=== PATIENT | female | born 1985 | race Hispanic/Latino ===

== ENCOUNTER 2019-04-08 09:47 | Inpatient (IN) | payer MEDICAID ==
--- NOTE | 2019-04-05 14:08 | History and Physical Report ---
History of Present Illness Date of examination: 04/01/19 Date of admission: 04/08/2019 Chief complaint: c/s with BTL History of present illness: Pt here for repeat c/s with BTL. EDC Confirmation: 03/18/2019 Gestational Age: 17 6/7 weeks Past History : 3 Term Births: 2 Living Children: 2 Para: 2 Prev : 2 Aborta: 0 # 1 Delivery date: 09/2008 Weeks Gestation: 41 labor: no Delivery type: Anesthesia type: epidural Delivery location: [facility] Infant Sex: Female weight: 7-2 Comments: failed IOL for post-dates # 2 Delivery date: 11/21/2011 Weeks Gestation: 39 Delivery type: Anesthesia type: epidural Delivery location: [facility] Sex: female weight: 6.31 Name: Jason Comments: none Past Medical History: Reviewed history from 04/15/2011 and no changes required: Negative Past Medical History Past Surgical History: Reviewed history from 04/15/2011 and no changes required: Past Medical History Abnormal PAP: negative JOSEY Exposure: negative Infertility: negative Uterine Anomaly: negative Uterine Surgery (not C/S): negative Other Gynecologic Problems: negative Medical History Comments: negative Family Hx: father- heart dz cousing- of melanoma 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 of genital herpes: no Rash, Viral, or Febrile illness since last LMP? no Varicella/Chicken Pox Status: Previous Disease Genetic History Congenital Heart Defect: Mom: no Dad: no Louis Disease: Mom: no Dad: no Thalassemia Mom: no Dad: no Neural Tube Defect Mom: no Dad: no Down's Syndrome Mom: no Dad: no Lex-Sachs Mom: no Dad: no Sickle Cell Disease/Trait Mom: no Dad: no Hemophilia Mom: no Dad: no Muscular Dystrophy Mom: no Dad: no Cystic Fibrosis Mom: no Dad: no Rajinder Chorea Mom: no Dad: no Mental Retardation Mom: no Dad: no Fragile X Mom: no Dad: no Other Genetic/Chromosomal Disorder Mom: no Dad: no Child w/other defect Mom: no Dad: no Enviromental Exposures Xray Exposure: no Medication, drug, or alcohol use since LMP: no Chemical/Other Exposure: no Exposure to Cat Liter: no Hx of Parvovirus (Fifth Disease): no Occupational Exposure to Children: none Active Medications (reviewed today): PNV () Current Allergies (reviewed today): No known allergies Past History Past Medical History: no pertinent history, other (see hpi) 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 History: denies: abnormal PAP smear Social history: no significant social history, - Obstetrical History Expected Date of Delivery: 04/12/19 Actual Gestation: 39 Week(s) 3 Day(s) Medications and Allergies Allergies Allergy/AdvReac Type Severity Reaction Status Date / Time No Known Allergies Allergy Unverified 04/08/19 10:40 Home Medications Medication Instructions Recorded Confirmed Last Taken Type No Known Home Medications [No 04/08/19 04/08/19 Unknown History Reported Home Medications] Review of Systems All systems: negative - Physical Exam Cardiovascular: Normal S1, Normal S2 Lungs: Positive: Clear to auscultation, Normal air movement Abdomen: Positive: normal appearance, soft. Negative: distention, tenderness, guarding Genitourinary (Female): Positive: other (deferred) - Obstetrical FHR: auscultation normal Results Result Diagrams: 04/08/19 10:40 All other labs normal. Assessment and Plan - Patient Problems (1) 39 weeks gestation of Current Visit: Yes Status: Acute Plan to address problem: -admit and prepare for c/s with BTL -consents signed and placed on the chart. (2) Encounter for sterilization Current Visit: Yes Status: Acute Plan to address problem: -admit and prepare for c/s with BTL -consents signed and placed on the chart. (3) Previous delivery affecting Current Visit: Yes Status: Acute Plan to address problem: -admit and prepare for c/s with BTL -consents signed and placed on the chart.
[~2019-04-08 09:47] MED LIST: BICITRA PO NR; PEPCID IV NR; REGLAN IV NR
[2019-04-08] MEDS ORDERED: ANCEF/STERILE WATER 2 GM/20 ML 2 GM/20 ML SYRINGE IV NR (10:00)
[2019-04-08 10:56] LABS: Basophils % (Auto) 0.3 % (0.0-1.8); Eosinophils % (Auto) 0.5 % (0.0-4.3); Hematocrit 32.2 % (30.3-42.9); Lymphocytes # (Auto) 1.9 K/mm3 (1.2-5.4); Lymphocytes % (Auto) 18.4 % (13.4-35.0); Mean Corpuscular HGB Conc 34 % (30-34); Mean Corpuscular Volume 89 fl (79-97); Monocytes # (Auto) 0.6 K/mm3 (0.0-0.8); Monocytes % (Auto) 6.3 % (0.0-7.3); Platelet Count 195 K/mm3 (140-440); Red Blood Count 3.63 M/mm3 (3.65-5.03); Red Cell Distribution Width 13.4 % (13.2-15.2)
--- NOTE | 2019-04-08 10:57 | Anesthesia Consultation ---
Anesthesia Consult and Med Hx Date of service: 04/08/19 - Airway Anesthetic Teeth Evaluation: Good ROM Head & Neck: Adequate Mental/Hyoid Distance: Adequate Mallampati Class: Class II Intubation Access Assessment: Probably Good - Pulmonary Exam CTA: Yes - Cardiac Exam Cardiac Exam: RRR - Pre-Operative Health Status ASA Pre-Surgery Classification: ASA2 Proposed Anesthetic Plan: Epidural - Pulmonary Hx Smoking: No Hx Asthma: No Hx Respiratory Symptoms: No SOB: No COPD: No Home Oxygen Therapy: No Hx Pneumonia: No Hx Sleep Apnea: No (snores) - Cardiovascular System Hx Hypertension: No Hx Coronary Artery Disease: No Hx Heart Attack/AMI: No Hx Angina: No Hx Percutaneous Transluminal Coronary Angioplasty (PTCA): No Hx Cardia Arrhythmia: No Hx Pacemaker: No Hx Internal Defibrillator: No Hx Valvular Heart Disease: No Hx Heart Murmur: No - Central Nervous System Hx Neuromuscular Disorder: No Hx Seizures: No CVA: No Hx Back Pain: Yes Hx Psychiatric Problems: No - Gastrointestinal Hx Ulcer: No Hx Gastroesophageal Reflux Disease: Yes - Endocrine Hx Renal Disease: No Hx Cirrhosis: No Hx Liver Disease: No Hx Insulin Dependent Diabetes: No Hx Non-Insulin Dependent Diabetes: No Hx Thyroid Disease: No Hx Hypothyroidism: No Hx Hyperthyroidism: No - Hematic Hx Anemia: No Hx Sickle Cell Disease: No - Other Systems Hx Alcohol Use: No Hx Substance Use: No Hx Cancer: No Hx Obesity: No
[2019-04-08] MEDS ORDERED: ZOFRAN IV PRN (10:58)
[2019-04-08] MEDS ORDERED: NARCAN 0.4 MG/1 ML IV PRN ×2 (10:58→13:36)
[2019-04-08] MEDS ORDERED: DILAUDID IV PRN ×2 (10:58)
--- NOTE | 2019-04-08 10:58 | Anesthesia Day of Surgery ---
Anesthesia Day of Surgery - Day of Surgery Patient Examined: Yes Patient H&P Reviewed: Yes Patient is NPO: Yes Beta Blockers: No Cardiac Clearance: No Pulmonary Clearance: No Shon's Test: N/A
[2019-04-08] MEDS ORDERED: SODIUM CHLORIDE FLUSH SYRINGE 10 ML IV NR (11:00)
[2019-04-08] MEDS: LACTATED RINGERS 1,000 ML IV SCH ×2 (11:04→11:38)
[2019-04-08] MEDS ORDERED: SUBLIMAZE ONE (11:08)
[2019-04-08] MEDS ORDERED: WATER FOR IRRIG STERILE IR ONE (12:00)
[2019-04-08] MEDS ORDERED: NACL 0.9% IR ONE (12:00)
[2019-04-08] MEDS ORDERED: TORADOL ONE (12:27)
[2019-04-08] MEDS ORDERED: NEO SYNEPHRINE ONE (12:28)
[2019-04-08] MEDS: PITOCin/NS 20 UNIT/1000ML DRIP 20 UNITS/1,000 ML BAG IV SCH ×2 (12:47→13:48)
[2019-04-08] MEDS ORDERED: VERSED ONE (13:15)
[2019-04-08] MEDS ORDERED: TUCKS PAD TP PRN (13:36)
[2019-04-08] MEDS ORDERED: LANSINOH TP PRN (13:36)
--- NOTE | 2019-04-08 13:36 | Operative Report ---
Operative Report Operative Report: Date of procedure: 04/08/2019 Pre-operative diagnosis: 39 weeks Previous section 2 Desires permanent sterilization Post-operative diagnosis: Same Procedure name(s): Repeat low transverse section via Pfannenstiel skin incision Bilateral tubal ligation via modified [place] method Surgeon: Dr. 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 11 oz. Apgars of 8 and 9 at one and 5 minutes Well-developed very thin lower uterine segment Grossly normal fallopian tubes and ovaries bilaterally Minimal abdominal adhesions Indications: Patient presents for scheduled repeat section with bilateral tubal ligation. All risks benefits and alternatives were discussed with patient. Consent forms were signed and placed on the chart. Procedure: Patient was taking to the operating room. Patient was then prepped and draped in sterile fashion after anesthesia was found to be adequate. A low transverse skin incision was made with the scalpel through previous incisional scar and carried down to the underlying layer of fascia with the Bovie. The fascia was then incised in the midline and this incision was extended bilaterally with the Bovie. The superior aspect of the fascia was grasped with Mendoza clamps tented upward and dissected off of the anterior rectus muscles with the scalpel. In similar fashion the inferior aspect of the fascia was grasped with Mendoza clamps tented upward and dissected off of the anterior rectus muscles. The rectus muscles were then bluntly divided in the midline. The peritoneum was identified and entered into sharply. The Robe retractor was placed. The bladder blade was replaced. A lower transverse uterine incision was made with the scalpel and extended bilaterally with the bandage sc issors. Artificial rupture of membranes was performed yielding clear amniotic fluid. The infant's head was then delivered atraumatically. The anterior shoulder and rest of delivered without difficulty. The umbilical cord was clamped x2. The cord was cut. The was then placed in sterile bassinet. he placenta was manually extracted in its entirety. The uterus was exteriorized and cleared of all clots and debris. The uterine incision was closed using 0 Vicryl in a running locking fashion. A second imbricating layer of the same suture was then created. Attention was then turned to the fallopian tubes. A knuckle of the fallopian tube was suture ligated 2 and transected. Portion of tube was then handed off for pathology. This was done bilaterally The posterior cul-de-sac was copiously irrigated. The uterus was returned to the abdomen. The gutters were also irrigated. Tisseel was placed over the uterine incision. The Robe retractor was removed from the abdomen. The anterior rectus muscles were reapproximated using 3-0 Vicryl. The anterior rectus fascia was reapproximated using 0 Vicryl in a running fashion. The subcuticular fat was reapproximated using 2-0 Vicryl in a running fashion. The skin was reapproximated with 4-0 Monocryl in a subcuticular stitch. The patient tolerated the procedure well. Sponge lap and needle counts were all correct x3. Patient was taken to the recovery room awake and in stable condition.
--- NOTE | 2019-04-08 13:38 | Post Anesthesia Evaluation ---
- Post Anesthesia Evaluation Patient Participated: Yes Airway Patent: Yes Stable Respiratory Function: Yes Nausea/Vomiting: No Temp > 96.8F: Yes Pain Manageable: Yes Adequeate Hydration: Yes Anesthesia Complications: No Block Receding Appropriately: Yes Patient on Ventilator: No
[2019-04-08] MEDS ORDERED: PITOCin/NS 20 UNIT/1000ML DRIP 20 UNITS/1,000 ML BAG IV SCH (14:00)
[2019-04-08] MEDS: TORADOL IV PRN (16:38)
[2019-04-08] MEDS: ANCEF/NS 1 GM/50 ML 1 GM/50 ML BAG IV SCH (16:45)
[2019-04-08] MEDS: D5LR 1,000 ML IV SCH (16:47)
[2019-04-09] MEDS: TORADOL IV PRN ×2 (00:11→05:30)
[2019-04-09] MEDS: D5LR 1,000 ML IV SCH (00:13)
[2019-04-09] MEDS: ANCEF/NS 1 GM/50 ML 1 GM/50 ML BAG IV SCH (00:18)
[2019-04-09] MEDS ORDERED: NORCO 5/325 PO PRN (01:00)
[2019-04-09 02:12] LABS: Hematocrit 27.8 % (30.3-42.9); Hemoglobin 9.4 gm/dl (10.1-14.3)
[2019-04-09] MEDS: COLACE PO SCH ×2 (10:49→21:08)
[2019-04-09] MEDS: FEOSOL PO SCH ×2 (12:23→21:08)
[2019-04-09] MEDS: IBUPROFEN PO PRN ×2 (12:24→18:07)
[2019-04-09] MEDS ORDERED: BOOSTRIX IM ONE (13:39)
--- NOTE | 2019-04-09 15:52 | Progress Note ---
Assessment and Plan POD1. Patient reports feeling well, denies any complaints or concerns. Fundus firm, ML, U/1. Vaginal bleeding is scant, patient denies any heavy bleeding or clots. Incision is dressed, CDI. Pt instructed to shower and remove dressing today. She reports pain is well controlled with medications. DWP post delivery H&H she denies any dizziness or feeling faint with position changes or ambulation. Fe ordered. VSSAF. Pt reports is going well. Continue current post-op pathway. Subjective - Subjective Date of service: 04/09/19 Principal diagnosis: POD 1 s/p repeat c/s with BTL Patient reports: appetite normal, voiding normally, pain well controlled, ambulating normally : doing well Objective - Vital Signs Latest vital signs: Vital Signs Temp Pulse Resp BP BP Pulse Ox 04/09/19 08:25 98.7 F 61 20 110/71 04/09/19 03:55 98.6 F 55 L 20 110/70 99 04/09/19 00:00 98.5 F 68 20 126/72 98 04/08/19 19:59 98.5 F 59 L 20 113/70 97 04/08/19 16:38 20 Intake and Output 04/08/19 04/09/19 04/09/19 23:59 07:59 15:59 Intake Total 50 1169.167 440 Output Total 086 219 6030 Balance -50 369.167 -560 Intake: IV 50 929.167 ANCEF/NS 1 GM/50 ML 1 gm 50 In 50 ml @ 100 mls/hr IV Q8H TG Rx#:[id number] D5lr 1,000 ml @ 125 mls/ 929.167 hr IV DIRECT TG Rx#: [id number] Oral 240 440 Output: Urine 553 295 8669 Indwelling Catheter 100 400 Void 400 1000 Other: Total, Intake Amount 240 120 Total, Output Amount 100 400 400 # Voids Void 1 2 - Exam Breasts: Present: normal Cardiovascular: Present: Regular rate, Normal S1, Normal S2 Lungs: Present: Clear to auscultation, Normal air movement Abdomen: Present: normal appearance, soft, normal bowel sounds Vulva: both: normal Uterus: Present: normal, firm, fundal height below umbilicus Extremities: Present: normal Incision: Present: dressed (C/D/I) - Labs Labs: Abnormal lab results 04/09/19 Range/Units 01:53 Hgb 9.4 L (10.1-14.3) gm/dl Hct 27.8 L (30.3-42.9) %
[2019-04-10] MEDS: IBUPROFEN PO PRN ×4 (02:24→22:15)
[2019-04-10] MEDS ORDERED: BOOSTRIX IM ONE (10:00)
[2019-04-10] MEDS: FEOSOL PO SCH ×2 (10:47→22:15)
[2019-04-10] MEDS: COLACE PO SCH ×3 (10:49→22:15)
--- NOTE | 2019-04-10 12:38 | Progress Note ---
Assessment and Plan patient doing well, sitting up eating regular diet. Pt reports w/o concerns. lochia scant, fundus firm, VSSAF, H&H 9.4/27.8. plan for d/c home tomorrow. - Patient Problems (1) delivery delivered Current Visit: Yes Status: Acute Plan to address problem: continue postop pathway Subjective - Subjective Date of service: 04/10/19 Principal diagnosis: POD #2 s/p repeat c/s with BTL Patient reports: appetite normal, voiding normally, pain well controlled, flatus, ambulating normally, no dizzy ambulation, no nauseated [place]: doing well, nursing well Objective - Vital Signs Latest vital signs: Vital Signs Temp Pulse Resp BP BP Pulse Ox 04/10/19 08:48 18 04/10/19 08:40 97.7 F 71 16 112/48 98 04/10/19 00:12 98.6 F 62 20 108/59 99 04/09/19 16:40 98.1 F 65 20 109/52 Intake and Output 04/09/19 04/10/19 04/10/19 23:59 07:59 15:59 Intake Total 440 Output Total 600 Balance -160 Intake: Oral 440 Output: Urine 600 Void 600 Other: Total, Intake Amount 120 Total, Output Amount 600 # Voids Void 1 - Exam Breasts: Present: normal, Cardiovascular: Present: Regular rate Lungs: Present: Clear to auscultation, Normal air movement Abdomen: Present: normal appearance, soft Vulva: both: normal Uterus: Present: normal, firm, fundal height at umbilicus Extremities: Present: normal Deep Tendon Reflex Grade: Normal +2 Incision: Present: normal, dry, intact
[2019-04-11] MEDS: IBUPROFEN PO PRN (06:37)
--- NOTE | 2019-04-11 08:47 | Discharge Summary ---
Providers - Providers Date of Admission: 04/08/19 09:47 Date of discharge: 04/11/19 Attending physician: HANNAH EDMONDS Primary care physician: HANNAH EDMONDS Hospitalization Reason for admission: scheduled repeat c/s with BTL Condition: Good Pertinent studies: post delivery H&H 9.4/27.8, acute anemia from blood loss at delivery, patient is asymptomatic, Fe ordered Procedures: repeat c/s with BTL Hospital course: uncomplicated c/s and post op course Disposition: DC-01 TO HOME OR SELFCARE Core Measure Documentation - Palliative Care Palliative Care/ Comfort Measures: Not Applicable - Core Measures Any of the following diagnoses?: none Exam - Constitutional Vitals: Temp Pulse Resp BP Pulse Ox 98.2 F 73 20 111/58 95 04/10/19 23:30 04/10/19 23:30 04/10/19 23:30 04/10/19 23:30 04/10/19 23:30 General appearance: Present: no acute distress, well-nourished - EENT Eyes: Present: PERRL ENT: hearing intact, clear oral mucosa - Neck Neck: Present: supple, normal ROM - Respiratory Respiratory effort: normal Respiratory: bilateral: CTA - Cardiovascular Heart Sounds: Present: S1 & S2. Absent: rub, click - Extremities Extremities: pulses symmetrical, No edema Peripheral Pulses: within normal limits - Abdominal General gastrointestinal: Present: soft, non-tender, non-distended, normal bowel sounds Female genitourinary: Present: normal - Integumentary Integumentary: Present: clear, warm, dry - Musculoskeletal Musculoskeletal: gait normal, strength equal bilaterally - Psychiatric Psychiatric: appropriate mood/affect, intact judgment & insight - Neurologic Neurologic: CNII-XII intact, moves all extremities - Additional findings Additional findings: Patient is resting in bed, reports being comfortable, she denies any complaints or concers. Fundus is firm, ML, U/2. Vaginal bleeding is minimal, she denies any heavy bleeding or clots. Incision is well-approximated, healing well, no bleeding or drainage noted, no s/s infection, steri-strips in place. DWP hygiene care for incision site. Pt reports pain is well controlled with medications. She reports is going well, no breast complaints. Encouraged pt to continue ambulation and use of IS after discharge. DWP labs post delivery, she denies any dizziness or feeling faint with ambulation or position changes. D/c rx on chart. DWP instructions for medications and also danger s/s to call for after discharge. VSSAF. D/c home today, f/u 1 week for incision check. Plan Activity: advance as tolerated Diet: regular Wound: open to air, keep clean and dry Follow up with: HANNAH EDMONDS MD [Primary Care Provider] - 7 Days (Congratulations! Please keep scheduled post-op appointment in 1 week. Call [phone] with any questions or concerns. ) Prescriptions: Docusate Sodium [Colace] 100 mg PO BID PRN #60 capsule PRN Reason: Constipation Ferrous Sulfate [Feosol 325 MG tab] 325 mg PO BID #60 tablet Ibuprofen [Motrin 800 MG tab] 800 mg PO Q6HR PRN #30 tablet PRN Reason: Pain, Moderate (4-6) oxyCODONE /ACETAMINOPHEN [Percocet 5/325] 1 tab PO Q4HR #30 tab
[2019-04-11] MEDS: FEOSOL PO SCH (10:18)
[2019-04-11] MEDS: COLACE PO SCH (10:18)
[2019-04-11 11:48] VITALS: BP 125/67
== END 2019-04-11 12:10 | disposition home or self-care (01) | DRG 765 ==
LOC: APU 09:47 → OB 16:08
PROVIDERS: ADMIT Obstetrics & Gynecology; ATTEND Obstetrics & Gynecology
PROC: 10D00Z1 Extraction of Products of Conception, Low, Open Approach (ICD-10-PCS; principal; 2019-04-08)
PROC: 0UB70ZZ Excision of Bilateral Fallopian Tubes, Open Approach (ICD-10-PCS; 2019-04-08)
PROC: 3E0234Z Introduction of Serum, Toxoid and Vaccine into Muscle, Percutaneous Approach (ICD-10-PCS; 2019-04-10)
DX: O34.211 Maternal care for low transverse scar from previous cesarean delivery (principal); D62 Acute posthemorrhagic anemia; Z3A.39 39 weeks gestation of pregnancy; Z37.0 Single live birth; Z23 Encounter for immunization; Z82.49 Family history of ischemic heart disease and other diseases of the circulatory system; K21.9 Gastro-esophageal reflux disease without esophagitis; O90.81 Anemia of the puerperium
CPT/HCPCS: 36415; 85014; 85018; 85025; 86762; 86850; 86900; 86901; 88302; 90471; 90715; G0378; A6250; C9250; J0690; J1885; J2250; J2370; J2590; J2765; J3010; J7120; J7121